=== PATIENT | male | born 1965 | race Hispanic/Latino ===

== ENCOUNTER 2021-10-17 07:47 | Inpatient (IN) | payer SELFPAY ==
[2021-10-17] MEDS ORDERED: fentaNYL 100 MCG/2 ML INJ IV ONE (08:29)
[2021-10-17] MEDS ORDERED: ONDANSETRON 4 MG/2 ML INJ IV ONE (08:29)
[2021-10-17] MEDS ORDERED: PANTOPRAZOLE 40 MG INJ IV ONE (08:29)
[2021-10-17] MEDS ORDERED: SODIUM CHLORIDE 0.9% 1000 ML 1,000 ML IV ONE ×2 (08:29→11:28)
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
[2021-10-17 08:59] LABS: Basophils # (Auto) 0.1 K/mm3 (0.0-0.1); Basophils % (Auto) 0.7 % (0.0-1.8); Eosinophils # (Auto) 0.4 K/mm3 (0.0-0.4); Eosinophils % (Auto) 3.2 % (0.0-4.3); Hematocrit 30.7 % (35.5-45.6); Hemoglobin 10.7 gm/dl (11.8-15.2); Lymphocytes # (Auto) 2.6 K/mm3 (1.2-5.4); Lymphocytes % (Auto) 23.3 % (13.4-35.0); Mean Corpuscular HGB Conc 35 % (32-34); Mean Corpuscular Volume 89 fl (84-94); Monocytes # (Auto) 1.2 K/mm3 (0.0-0.8); Platelet Count 398 K/mm3 (140-440); Red Blood Count 3.45 M/mm3 (3.65-5.03); Red Cell Distribution Width 13.3 % (13.2-15.2)
[2021-10-17 09:20] LABS: Creatine Kinase MB < 1.0 ng/mL (0.0-4.0)
[2021-10-17 09:21] LABS: Alanine Aminotransferase 7 units/L (7-56); Albumin 3.9 g/dL (3.9-5); BUN/Creatinine Ratio 29; Blood Urea Nitrogen 47 mg/dL (9-20); Calcium 9.6 mg/dL (8.4-10.2); Hemolysis Index 0
--- NOTE | 2021-10-17 10:26 | Cat Scan Report ---
CT abdomen pelvis w con INDICATION / CLINICAL INFORMATION: Epigastric pain, nausea vomit. TECHNIQUE: Axial CT images were obtained through the abdomen and pelvis after 100 cc of Omnipaque [address] scans at this location are performed using CT dose reduction for ALARA by means of automated exposure control. COMPARISON: None available. FINDINGS: LOWER CHEST: No significant abnormality LIVER: No significant abnormality GALLBLADDER/BILIARY TREE: No significant abnormality PANCREAS: Distal pancreas is absent. Proximal pancreas appears unremarkable. SPLEEN: No significant abnormality ADRENALS: No significant abnormality RIGHT KIDNEY / URETER: There is compensatory hypertrophy of the right kidney without acute abnormalit y. LEFT KIDNEY / URETER: Marked left renal atrophy without acute abnormality. URINARY BLADDER: No significant abnormality REPRODUCTIVE ORGANS: No significant abnormality STOMACH / BOWEL: Mural thickening and inflammatory stranding of the gastroduodenal junction with ulce ration and focal fluid and gas collection measuring 2.9 x 2.2 cm (series 2 image 55). Small areas of extra luminal gas are present, though there is no sandhya pneumoperitoneum within the remainder of the abdomen or pelvis. No evidence of obstruction. Remaining small bowel and colon are otherwise unremark able. Small bowel is normal in caliber. The colon is unremarkable. The appendix is normal in caliber. LYMPH NODES: No significant adenopathy. VASCULATURE: No significant abnormality. OTHER: No free air, free fluid, or focal fluid collection is identified. SKELETAL SYSTEM: No acute osseous findings. Chronic pars defects at L5 with minimal anterolisthesis a nd severe disc space height loss at L5-S1. IMPRESSION: 1. Findings consistent with peptic ulcer disease at the gastroduodenal junction with 2.9 cm focal flu id and gas collection, compatible with contained perforation. Small areas of extraluminal gas are pre sent without sandhya pneumoperitoneum within the remainder of the abdomen or pelvis. 2. No other acute abnormality. 3. Marked left renal atrophy. Other chronic and incidental findings as above. Signer Name: Cortes Maynard MD Signed: 10/17/2021 10:22 AM Workstation Name: [id number]
[2021-10-17 10:46] LABS: Bilirubin,Urine NEG (Negative); Blood,Urine SM (Negative); Color,Urine Straw (Yellow); Mucus,Urine FEW /HPF; Protein,Urine <15 mg/dL mg/dL (Negative); Urobilinogen,Urine < 2.0 mg/dL (<2.0)
[2021-10-17] MEDS ORDERED: PIPERACIL/TAZOBACTA 4.5/NS 100 4.5 GM/100 ML VIAL IV ONE (11:26)
--- NOTE | 2021-10-17 11:35 | Electrocardiograph Report ---
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
[2021-10-17] MEDS ORDERED: HYDROmorphone 1 MG/1 ML INJ IV ONE (12:04)
[2021-10-17] MEDS ORDERED: ONDANSETRON 4 MG/2 ML INJ ONE ×2 (12:05→15:59)
[2021-10-17] MEDS ORDERED: ACETAMINOPHEN 325 MG TAB PO PRN (12:26)
[2021-10-17] MEDS ORDERED: ALBUTEROL 2.5 MG/3 ML NEBU IH PRN (12:26)
--- NOTE | 2021-10-17 12:29 | History and Physical Report ---
History of Present Illness Chief complaint: My stomach hurts and I feel weak History of present illness: 56 YO Male with Obesity, DM, Metabolic Syndrome presents ED for evaluation. Patient reports "my stomach hurts". Patient states that he has experienced abdominal pain over the past 10 days with persistent symptoms over the same timeframe. Patient states that his symptoms were initially intermittent but have become more constant over the last 1 day. Patient states his pain is epigastric in nature, worsened with meals. Patient acknowledges nausea, and multiple episodes of vomiting. Patient knowledges diminished oral intake resulting in generalized weakness. EMS was notified and upon arrival the patient was found to be in distress and subsequently transported to [facility] for further care and evaluation of the aforementioned symptoms. The patient was seen and evaluated in the emergency department. All lab and imaging studies reviewed. Patient was CT scan of the abdomen and pelvis and was found to have peptic ulcer disease complicated by bowel perforation, systemic inflammatory response syndrome, acute kidney injury, volume depletion, and acute generalized peritonitis. Surgical team consulted in ED. Patient taken urgently to operating room for surgical intervention. Patient denies fever, chills, chest pain, palpitation, cough, skin rash, recent ill contacts, ingestion of food/water from new or different sources, or known exposure to COVID-19. No prior admission for review. No medication listed at time of admission for reconciliation. Advanced care planning conducted in ED. Patient admitted to IMCU due to increased risk of worsening symptoms. Past History Past Medical History: diabetes, GERD, other (See HPI) Past Surgical History: bowel surgery Social history: . denies: smoking, alcohol abuse, prescription drug abuse Family history: diabetes, hypertension Medications and Allergies Allergies Allergy/AdvReac Type Severity Reaction Status Date / Time ibuprofen AdvReac Bleeding Verified 10/17/21 07:53 Review of Systems Constitutional: no weight loss, no weight gain, no fever, no chills Ears, nose, mouth and throat: no ear pain, no ear discharge, no tinnitis, no nasal congestion Cardiovascular: no chest pain, no rapid/irregular heart beat, no edema Respiratory: no cough, no cough with sputum, no hemoptysis, no shortness of breath Gastrointestinal: abdominal pain, nausea, vomiting, indigestion Genitourinary Male: no hematuria, no flank pain, no urinary frequency, no urinary hesitancy Musculoskeletal: no neck stiffness, no neck pain, no shooting leg pain, no leg numbness/tingling Integumentary: no rash, no pruritis, no redness, no sores, no jaundice Neurological: no head injury, no transient paralysis, no weakness, no numbness, no syncope, no tremors Psychiatric: no anxiety, no memory loss, no insomnia, no hypersomnia, no change in appetite, no change in libido, no disorientation, no hallucinations Endocrine: no cold intolerance, no heat intolerance, no polydipsia, no polyuria, no nocturia Hematologic/Lymphatic: no easy bruising, no easy bleeding Allergic/Immunologic: no urticaria, no allergic rhinitis, no wheezing Exam - Constitutional Vitals: Temp Pulse Resp BP Pulse Ox 98.7 F 100 H 15 140/84 98 10/17/21 07:52 10/17/21 11:31 10/17/21 11:31 10/17/21 11:31 10/17/21 11:31 General appearance: Present: mild distress, obese - EENT Eyes: Present: PERRL ENT: hearing intact, clear oral mucosa - Neck Neck: Present: supple, normal ROM - Respiratory Respiratory effort: normal Respiratory: bilateral: CTA - Cardiovascular Heart Sounds: Present: S1 & S2. Absent: rub, click - Extremities Extremities: pulses symmetrical, No edema Peripheral Pulses: within normal limits - Abdominal General gastrointestinal: Present: soft, tender, non-distended, normal bowel sounds Localized gastrointestinal: tender: diffuse, guarding: diffuse, rebound: diffuse Male genitourinary: Present: normal - Integumentary Integumentary: Present: clear, warm, dry - Musculoskeletal Musculoskeletal: gait normal, strength equal bilaterally - Psychiatric Psychiatric: appropriate mood/affect, intact judgment & insight - Neurologic Neurologic: CNII-XII intact, moves all extremities HEART Score - HEART Score Troponin: Troponin T < 0.010 ng/mL (0.00-0.029) 10/17/21 08:41 Results - Labs CBC & Chem 7: 10/17/21 08:41 10/17/21 08:41 Labs: Abnormal lab results 10/17/21 10/17/21 10/17/21 Range/Units 08:11 08:41 08:41 WBC 11.2 H (4.5-11.0) K/mm3 RBC 3.45 L (3.65-5.03) M/mm3 Hgb 10.7 L (11.8-15.2) gm/dl Hct 30.7 L (35.5-45.6) % MCHC 35 H (32-34) % [place] % (Auto) 11.0 H (0.0-7.3) % [place] # (Auto) 1.2 H (0.0-0.8) K/mm3 VBG pH (7.320-7.420) Sodium 126 L (137-145) mmol/L Chloride 85.0 L (98-107) mmol/L Carbon Dioxide 19 L (22-30) mmol/L BUN 47 H (9-20) mg/dL Creatinine 1.6 H (0.8-1.3) mg/dL Glucose 417 H (75-100) mg/dL POC Glucose 400 H (70-105) mg/dL Total Creatine Kinase 20 L (55-170) units/L CK-MB (CK-2) Rel Index 5.0 H (0-4) 10/17/21 Range/Units 08:41 WBC (4.5-11.0) K/mm3 RBC (3.65-5.03) M/mm3 Hgb (11.8-15.2) gm/dl Hct (35.5-45.6) % MCHC (32-34) % [place] % (Auto) (0.0-7.3) % [place] # (Auto) (0.0-0.8) K/mm3 VBG pH 7.439 H (7.320-7.420) Sodium (137-145) mmol/L Chloride (98-107) mmol/L Carbon Dioxide (22-30) mmol/L BUN (9-20) mg/dL Creatinine (0.8-1.3) mg/dL Glucose (75-100) mg/dL POC Glucose (70-105) mg/dL Total Creatine Kinase (55-170) units/L CK-MB (CK-2) Rel Index (0-4) Assessment and Plan - Patient Problems (1) Acute generalized peritonitis Current Visit: Yes Status: Acute Plan to address problem: Surgery team consulted in ED, CT scan abdomen pelvis, serial abdominal exam, empiric IV antibiotic therapy x1 dose, pain control, n.p.o., continue medical management. (2) SIRS (systemic inflammatory response syndrome) Current Visit: Yes Status: Acute Plan to address problem: Empiric IV antibiotic therapy x1 dose, continue medical management, CBC, CMP, chest x-ray, CT scan abdomen and pelvis (3) Acute kidney injury (EWA) with acute tubular necrosis (ATN) Current Visit: Yes Status: Acute Plan to address problem: BMP, IV fluid resuscitation therapy, repeat BMP in a.m. to monitor serum creati nine as well as GFR. Monitor fluid balance. (4) Volume depletion Current Visit: Yes Status: Acute (5) Metabolic acidosis Current Visit: Yes Status: Acute Plan to address problem: IV fluid resuscitation therapy, supportive care, repeat BMP in AM. (6) Hyponatremia Current Visit: Yes Status: Acute Plan to address problem: IV fluid resuscitation therapy, BMP, repeat BMP in a.m. (7) Diabetes mellitus Current Visit: Yes Status: Acute Plan to address problem: Sliding-scale insulin therapy, Accu-Chek, insulin protocol, hypoglycemia protocol, (8) Obesity hypoventilation syndrome Current Visit: Yes Status: Acute Plan to address problem: Balanced diet, increase physical activity discharge, outpatient pulmonary follow-up for sleep study. (9) Perforated ulcer Current Visit: Yes Status: Acute Plan to address problem: CT scan abdomen pelvis, surgery team consulted, patient is pending surgical intervention. Pain control, n.p.o., IV fluid resuscitation therapy. (10) DVT prophylaxis Current Visit: Yes Status: Acute Plan to address problem: SCDs to bilateral lower extremities while in bed (11) Advance care planning Current Visit: Yes Status: Acute Plan to address problem: Disease education conducted, care plan discussed, diagnosis discussed, prognosis discussed, patient is full code. Patient and his understanding and agreement with care plan, +30 minutes.
[2021-10-17] MEDS ORDERED: LORazepam 2 MG/ML VIAL IV ONE (13:14)
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
[2021-10-17] MEDS ORDERED: LIDOCAINE MPF (2%) 20 MG/1 ML VIAL 5 ML ONE (13:26)
[2021-10-17] MEDS ORDERED: propofoL 200 MG/20 ML VIAL IV ONE (13:27)
[2021-10-17] MEDS ORDERED: MIDAZOLAM 2 MG/2 ML INJ ONE (13:27)
[2021-10-17] MEDS ORDERED: BUPIVACAINE/PF (0.5%) 5 MG/1 ML 30 ML VIAL INFILTRATI ONE ×2 (13:43→14:50)
[2021-10-17] MEDS ORDERED: LIDOCAINE 2%/EPINEPHRINE 1:200,000 VIAL (20 ML) INFILTRATI ONE (13:43)
[2021-10-17] MEDS ORDERED: ROCURONIUM 50 MG/5 ML INJ IV ONE ×2 (13:51→15:19)
[2021-10-17] MEDS ORDERED: fentaNYL 100 MCG/2 ML INJ ONE ×2 (13:52→14:42)
--- NOTE | 2021-10-17 14:04 | Anesthesia Day of Surgery ---
Anesthesia Day of Surgery - Day of Surgery Patient Examined: Yes Patient H&P Reviewed: Yes Patient is NPO: Yes
--- NOTE | 2021-10-17 14:05 | Anesthesia Consultation ---
Anesthesia Consult and Med Hx Date of service: 10/17/21 - Airway Anesthetic Teeth Evaluation: Good ROM Head & Neck: Adequate Mental/Hyoid Distance: Adequate Mallampati Class: Class II Intubation Access Assessment: Good - Pulmonary Exam CTA: Yes - Cardiac Exam Cardiac Exam: RRR - Pre-Operative Health Status ASA Pre-Surgery Classification: ASA2 Proposed Anesthetic Plan: General - Pulmonary Hx Smoking: No - Cardiovascular System Hx Hypertension: Yes - Gastrointestinal Hx Ulcer: Yes Hx Gastroesophageal Reflux Disease: Yes - Other Systems Hx Obesity: Yes
[2021-10-17] MEDS ORDERED: LIDOCAINE 1%/EPINEPHRINE 1:100,000 VIAL (20 ML) INFILTRATI ONE (14:51)
[2021-10-17] MEDS ORDERED: SODIUM CHLORIDE 0.9% IRR 1,500 ML BOTTLE IR ONE (14:52)
[2021-10-17] MEDS ORDERED: WATER FOR IRRIG STERILE 250 ML BOTTLE IR ONE (15:17)
[2021-10-17] MEDS ORDERED: WATER FOR IRRIG STERILE 1,000 ML BOTTLE ONE (15:17)
[2021-10-17] MEDS ORDERED: KETAMINE/STERILE WATER 50 MG/ML SYRINGE ONE (15:18)
[2021-10-17] MEDS ORDERED: ePHEDrine SULFATE 50 MG/1 ML INJ ONE (15:24)
[2021-10-17] MEDS ORDERED: SODIUM CHLORIDE 0.9% IRRIG SOLN 2000 ML IR ONE (15:39)
[2021-10-17] MEDS ORDERED: PHENYLEPHRINE/NS 1,000 MCG/10 ML SYRINGE (OR USE) IV ONE (16:02)
[2021-10-17] MEDS ORDERED: NEOSTIGMINE 10MG/10 ML INJ MDV ONE (16:02)
[2021-10-17] MEDS ORDERED: GLYCOPYRROLATE 0.4 MG/2 ML INJ ONE (16:02)
[2021-10-17] MEDS ORDERED: HYDROmorphone 1 MG/1 ML INJ ONE (16:19)
[2021-10-17] MEDS ORDERED: INSULIN LISPRO 100 UNIT/ML SUB-Q ONE ×2 (16:59→17:00)
--- NOTE | 2021-10-17 17:12 | Post Anesthesia Evaluation ---
- Post Anesthesia Evaluation Patient Participated: Yes Airway Patent: Yes Stable Respiratory Function: Yes Nausea/Vomiting: No Temp > 96.8F: Yes Pain Manageable: Yes Adequeate Hydration: Yes Anesthesia Complications: No Block Receding Appropriately: Not Applicable Patient on Ventilator: No
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
[2021-10-17] MEDS: SODIUM CHLORIDE 0.9% 1000 ML 1,000 ML IV SCH (18:00)
[2021-10-17] MEDS: MORPHINE 2 MG/1 ML INJ IV PRN (18:00)
[2021-10-17] MEDS ORDERED: DEXTROSE 50% IN WATER (25GM) 50 ML SYRINGE IV PRN (18:41)
[2021-10-17] MEDS ORDERED: PROMETHAZINE 25 MG TAB PO PRN (18:42)
[2021-10-17] MEDS ORDERED: ZOLPIDEM 5 MG TAB PO PRN (18:42)
[2021-10-17] MEDS ORDERED: ALPRAZolam 1 MG TAB PO PRN (19:31)
[2021-10-17] MEDS: LORazepam 2 MG/ML VIAL IV PRN (19:45)
[2021-10-17] MEDS: HYDROmorphone 1 MG/1 ML INJ IV PRN (19:46)
[2021-10-17] MEDS ORDERED: NON-FORMULARY EACH (Alprazolam [Xanax Tab] 2 MG Tablet) PO SCH (22:00)
[2021-10-17] MEDS ORDERED: PANTOPRAZOLE 40 MG TAB PO SCH (22:00)
[2021-10-17] MEDS: ALPRAZolam 1 MG TAB PO SCH (22:09)
[2021-10-17] MEDS: GABAPENTIN 400 MG CAP PO SCH (22:09)
[2021-10-17] MEDS: QUEtiapine 100 MG TAB PO SCH (22:09)
[2021-10-17] MEDS: ONDANSETRON 4 MG/2 ML INJ IV PRN (22:25)
[2021-10-17] MEDS: PANTOPRAZOLE 80 MG in SODIUM CHLORIDE 0.9% 100 ML IV SCH (22:26)
[2021-10-17] MEDS: INSULIN LISPRO 100 UNIT/ML SUB-Q SCH (23:58)
[2021-10-18] MEDS: MORPHINE 2 MG/1 ML INJ IV PRN ×3 (00:01→22:51)
[2021-10-18] MEDS: PIPERACIL/TAZOBACTA 4.5/NS 100 4.5 GM/100 ML VIAL IV SCH ×5 (00:55→23:00)
[2021-10-18] MEDS: LORazepam 2 MG/ML VIAL IV PRN ×4 (01:10→22:51)
[2021-10-18] MEDS: INSULIN LISPRO 100 UNIT/ML SUB-Q SCH ×3 (06:16→17:51)
[2021-10-18] MEDS: GABAPENTIN 400 MG CAP PO SCH ×2 (06:17→13:35)
[2021-10-18] MEDS: HYDROmorphone 1 MG/1 ML INJ IV PRN ×4 (07:10→21:05)
[2021-10-18] MEDS: SODIUM CHLORIDE 0.9% 1000 ML 1,000 ML IV SCH ×2 (07:11→21:12)
[2021-10-18 08:50] LABS: Hematocrit 28.5 % (35.5-45.6); Hemoglobin 9.9 gm/dl (11.8-15.2); Mean Corpuscular HGB Conc 35 % (32-34); Mean Corpuscular Volume 89 fl (84-94); Platelet Count 396 K/mm3 (140-440); Red Cell Distribution Width 13.1 % (13.2-15.2)
[2021-10-18] MEDS: PANTOPRAZOLE 80 MG in SODIUM CHLORIDE 0.9% 100 ML IV SCH ×2 (09:07→21:11)
[2021-10-18 09:09] LABS: Calcium 8.4 mg/dL (8.4-10.2)
[2021-10-18] MEDS: QUEtiapine 100 MG TAB PO SCH (09:54)
[2021-10-18] MEDS: ALPRAZolam 1 MG TAB PO SCH (09:55)
[2021-10-18] MEDS ORDERED: HCTZ 6.25 MG PO SCH (10:00)
[2021-10-18] MEDS ORDERED: TAMSULOSIN 0.4 MG CAP PO SCH (10:00)
[2021-10-18] MEDS ORDERED: CITALOPRAM 20 MG TAB PO SCH (10:00)
[2021-10-18] MEDS ORDERED: LISINOPRIL 10 MG TAB PO SCH (10:00)
[2021-10-18] MEDS ORDERED: BISOPROLOL PO SCH (10:00)
--- NOTE | 2021-10-18 12:33 | Post Anesthesia Evaluation ---
- Post Anesthesia Evaluation Patient Participated: No (Patient sleeping - information obtained from RN) Airway Patent: Yes Stable Respiratory Function: Yes Nausea/Vomiting: No Temp > 96.8F: Yes Pain Manageable: Yes Adequeate Hydration: Yes Anesthesia Complications: No Block Receding Appropriately: Not Applicable Patient on Ventilator: No
--- NOTE | 2021-10-18 13:38 | Progress Note ---
Assessment and Plan Postop day #1 status post diagnostic laparoscopy with drain placement for contained perforated duodenal ulcer. Patient is afebrile with low-grade tachycardia. Patient WBCs have normalized. Continue NG tube to low intermittent suction, Protonix drip, and will check integrity of sealed perforation with upper GI on Saturday. Continue antibiotics and aggressive resuscitation. Spoke with critical care team and suggested contacting [facility] to see if there are any IV medications that may help his anxiety since at home he is on Xanax, Seroquel, and Celexa. Patient also takes several medications including a beta-evy for blood pressure. Subjective Date of service: 10/18/21 Narrative: No acute events overnight. Patient says his epigastric pain is slightly better than when he presented in the emergency room. His biggest complaint is wanting the NG tube out. He also says that he really wants ice chips. Objective Vital Signs - 12hr 10/18/21 10/18/21 10/18/21 02:00 03:00 03:16 Temperature Pulse Rate 136 H 98 H 102 H Pulse Rate [ From Monitor] Respiratory 12 14 15 Rate Blood Pressure 132/76 150/112 150/112 O2 Sat by Pulse 97 95 98 Oximetry 10/18/21 10/18/21 10/18/21 03:30 03:46 04:00 Temperature 97.9 F Pulse Rate 100 H 99 H 111 H Pulse Rate [ 110 H From Monitor] Respiratory 14 17 19 Rate Blood Pressure 150/112 150/112 150/112 O2 Sat by Pulse 97 96 98 Oximetry 10/18/21 10/18/21 10/18/21 04:30 05:00 05:30 Temperature Pulse Rate 100 H 117 H 102 H Pulse Rate [ From Monitor] Respiratory 15 13 14 Rate Blood Pressure 139/76 144/78 144/78 O2 Sat by Pulse 95 98 91 Oximetry 10/18/21 10/18/21 10/18/21 06:00 06:06 06:30 Temperature Pulse Rate 107 H 102 H Pulse Rate [ From Monitor] Respiratory 19 17 16 Rate Blood Pressure 152/80 152/80 O2 Sat by Pulse 97 95 Oximetry 10/18/21 10/18/21 10/18/21 07:00 07:30 07:55 Temperature Pulse Rate 105 H 113 H 110 H Pulse Rate [ From Monitor] Respiratory 10 L 11 L Rate Blood Pressure 152/77 152/77 O2 Sat by Pulse 95 99 Oximetry 10/18/21 10/18/21 10/18/21 07:56 07:57 08:00 Temperature 97.4 F L Pulse Rate 108 H Pulse Rate [ 108 H From Monitor] Respiratory 16 16 Rate Blood Pressure 134/71 O2 Sat by Pulse 95 95 Oximetry 10/18/21 10/18/21 10/18/21 08:30 09:00 09:30 Temperature Pulse Rate 107 H 108 H 104 H Pulse Rate [ From Monitor] Respiratory 11 L 14 15 Rate Blood Pressure 134/71 134/71 141/79 O2 Sat by Pulse 95 99 98 Oximetry 10/18/21 10/18/21 10/18/21 10:00 10:30 11:00 Temperature Pulse Rate 102 H 104 H 107 H Pulse Rate [ From Monitor] Respiratory 15 18 15 Rate Blood Pressure 155/74 155/74 134/25 O2 Sat by Pulse 90 97 98 Oximetry - General physical appearance well developed, no distress, moderate pain - Eyes PERRL - Respiratory normal expansion, normal respiratory effort - Abdomen soft, other (ISIDRA drain SS, tender to palpation epigastric area, soft, incisions c/d/i) - Psychiatric other (anxious) - Labs 10/18/21 08:27 10/18/21 08:27 Diabetes panel 10/18/21 Range/Units 08:27 Sodium 136 L D (137-145) mmol/L Potassium 4.3 (3.6-5.0) mmol/L Chloride 100.7 (98-107) mmol/L Carbon Dioxide 22 (22-30) mmol/L BUN 29 H (9-20) mg/dL Creatinine 1.5 H (0.8-1.3) mg/dL Glucose 231 H (75-100) mg/dL Calcium 8.4 (8.4-10.2) mg/dL Calcium panel 10/18/21 Range/Units 08:27 Calcium 8.4 (8.4-10.2) mg/dL Pituitary panel 10/18/21 Range/Units 08:27 Sodium 136 L D (137-145) mmol/L Potassium 4.3 (3.6-5.0) mmol/L Chloride 100.7 (98-107) mmol/L Carbon Dioxide 22 (22-30) mmol/L BUN 29 H (9-20) mg/dL Creatinine 1.5 H (0.8-1.3) mg/dL Glucose 231 H (75-100) mg/dL Calcium 8.4 (8.4-10.2) mg/dL Adrenal panel 10/18/21 Range/Units 08:27 Sodium 136 L D (137-145) mmol/L Potassium 4.3 (3.6-5.0) mmol/L Chloride 100.7 (98-107) mmol/L Carbon Dioxide 22 (22-30) mmol/L BUN 29 H (9-20) mg/dL Creatinine 1.5 H (0.8-1.3) mg/dL Glucose 231 H (75-100) mg/dL Calcium 8.4 (8.4-10.2) mg/dL
[2021-10-18] MEDS: FLUCONAZOLE/NS 100 MG/50 ML 100 MG/50 ML BAG IV SCH (14:14)
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
[2021-10-18] MEDS: ACETAMINOPHEN IV 1,000 MG/100 ML BOTTLE IV SCH ×2 (17:49→21:04)
[2021-10-18] MEDS: ONDANSETRON 4 MG/2 ML INJ IV PRN (17:53)
[2021-10-18] MEDS: HEPARIN 5,000 UNIT/1 ML VIAL SUB-Q SCH (21:05)
[2021-10-19] MEDS: INSULIN LISPRO 100 UNIT/ML SUB-Q SCH ×4 (01:05→18:10)
[2021-10-19] MEDS: HYDROmorphone 1 MG/1 ML INJ IV PRN ×4 (01:55→20:32)
[2021-10-19] MEDS: ACETAMINOPHEN IV 1,000 MG/100 ML BOTTLE IV SCH ×2 (03:56→10:50)
[2021-10-19] MEDS: LORazepam 2 MG/ML VIAL IV PRN (04:06)
[2021-10-19 05:14] LABS: Hematocrit 27.1 % (35.5-45.6); Hemoglobin 9.2 gm/dl (11.8-15.2); Mean Corpuscular HGB Conc 34 % (32-34); Mean Corpuscular Volume 91 fl (84-94); Platelet Count 436 K/mm3 (140-440); Red Blood Count 2.99 M/mm3 (3.65-5.03); Red Cell Distribution Width 13.6 % (13.2-15.2)
[2021-10-19 05:30] LABS: Calcium 7.7 mg/dL (8.4-10.2)
[2021-10-19] MEDS: PIPERACIL/TAZOBACTA 4.5/NS 100 4.5 GM/100 ML VIAL IV SCH ×4 (05:41→23:55)
[2021-10-19] MEDS ORDERED: SODIUM PHOSPHATE 30 MMOL in SODIUM CHLORIDE 0.9% 500 ML 500 ML IV ONE (08:30)
[2021-10-19] MEDS: HEPARIN 5,000 UNIT/1 ML VIAL SUB-Q SCH ×2 (09:24→21:59)
[2021-10-19] MEDS: PANTOPRAZOLE 80 MG in SODIUM CHLORIDE 0.9% 100 ML IV SCH ×2 (09:24→20:21)
[2021-10-19] MEDS ORDERED: HALOPERIDOL LACTATE 5 MG/1 ML INJ IM PRN (10:10)
[2021-10-19] MEDS: HALOPERIDOL LACTATE 5 MG/1 ML INJ IV PRN ×3 (10:50→21:59)
[2021-10-19] MEDS: FLUCONAZOLE/NS 100 MG/50 ML 100 MG/50 ML BAG IV SCH (14:59)
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
[2021-10-19] MEDS: ONDANSETRON 4 MG/2 ML INJ IV PRN (15:38)
[2021-10-19] MEDS ORDERED: ACETAMINOPHEN 325 MG TAB PO PRN (16:00)
--- NOTE | 2021-10-19 17:00 | Progress Note ---
Assessment and Plan Postop day #2 status post diagnostic laparoscopy with drain placement for contained perforated duodenal ulcer. Patient is afebrile with low-grade tachycardia. Patient WBCs have normalized. Patient to be strict n.p.o. Will check UGI tomorrow. If negative will start on clear liquids and advance as tolerated. Subjective Date of service: 10/19/21 Narrative: Patient pulled out his NG tube this morning. Patient still asking for juice. Patient says that his pain in his epigastric area is improved compared to admission but he still feels some discomfort in the area. He denies any nausea or vomiting. Objective Vital Signs - 12hr 10/19/21 10/19/21 10/19/21 05:01 05:31 06:01 Temperature Pulse Rate 101 H 104 H 118 H Pulse Rate [ From Monitor] Respiratory 12 14 18 Rate Blood Pressure 133/64 133/64 133/64 O2 Sat by Pulse 99 99 99 Oximetry 10/19/21 10/19/21 10/19/21 06:31 06:46 07:00 Temperature Pulse Rate 109 H 108 H Pulse Rate [ From Monitor] Respiratory 15 14 12 Rate Blood Pressure 146/74 132/68 O2 Sat by Pulse 99 100 Oximetry 10/19/21 10/19/21 10/19/21 07:31 08:00 08:31 Temperature 99.0 F Pulse Rate 102 H 107 H 101 H Pulse Rate [ 100 H From Monitor] Respiratory 13 20 15 Rate Blood Pressure 132/68 119/70 119/70 O2 Sat by Pulse 99 99 98 Oximetry 10/19/21 10/19/21 10/19/21 09:00 09:34 09:57 Temperature Pulse Rate 101 H Pulse Rate [ From Monitor] Respiratory 15 Rate Blood Pressure 122/69 122/69 O2 Sat by Pulse 98 95 Oximetry 10/19/21 10/19/21 10/19/21 10:01 10:31 10:50 Temperature Pulse Rate 106 H 106 H Pulse Rate [ From Monitor] Respiratory 15 Rate Blood Pressure 159/90 159/90 O2 Sat by Pulse 95 94 Oximetry 10/19/21 10/19/21 10/19/21 11:00 11:30 11:31 Temperature 97.5 F L Pulse Rate 111 H 106 H Pulse Rate [ From Monitor] Respiratory 15 22 Rate Blood Pressure 131/99 131/99 O2 Sat by Pulse 97 97 Oximetry 10/19/21 10/19/21 10/19/21 12:00 12:31 13:00 Temperature Pulse Rate 103 H 105 H 105 H Pulse Rate [ 104 H From Monitor] Respiratory 16 17 15 Rate Blood Pressure 155/87 155/87 164/83 O2 Sat by Pulse 93 93 93 Oximetry 10/19/21 10/19/21 10/19/21 13:31 14:00 14:31 Temperature Pulse Rate 106 H 104 H 101 H Pulse Rate [ From Monitor] Respiratory 20 17 17 Rate Blood Pressure 164/83 159/86 159/86 O2 Sat by Pulse 93 96 96 Oximetry 10/19/21 15:00 Temperature 99.0 F Pulse Rate 116 H Pulse Rate [ From Monitor] Respiratory 13 Rate Blood Pressure 175/85 O2 Sat by Pulse 97 Oximetry - General physical appearance well developed, no distress, no pain - ENT no hearing loss - Respiratory normal expansion, normal respiratory effort - Abdomen soft, not distended, not rebound, not guarding, other (Tender to deep palpation epigastric area, ISIDRA drain small amount of serosanguineous fluid) - Labs 10/19/21 04:31 10/19/21 04:31 Diabetes panel 10/19/21 Range/Units 04:31 Sodium 137 (137-145) mmol/L Potassium 3.9 (3.6-5.0) mmol/L Chloride 102.4 (98-107) mmol/L Carbon Dioxide 22 (22-30) mmol/L BUN 17 (9-20) mg/dL Creatinine 1.4 H (0.8-1.3) mg/dL Glucose 174 H (75-100) mg/dL Calcium 7.7 L (8.4-10.2) mg/dL Calcium panel 10/19/21 Range/Units 04:31 Calcium 7.7 L (8.4-10.2) mg/dL Phosphorus 1.70 L (2.5-4.5) mg/dL Pituitary panel 10/19/21 Range/Units 04:31 Sodium 137 (137-145) mmol/L Potassium 3.9 (3.6-5.0) mmol/L Chloride 102.4 (98-107) mmol/L Carbon Dioxide 22 (22-30) mmol/L BUN 17 (9-20) mg/dL Creatinine 1.4 H (0.8-1.3) mg/dL Glucose 174 H (75-100) mg/dL Calcium 7.7 L (8.4-10.2) mg/dL Adrenal panel 10/19/21 Range/Units 04:31 Sodium 137 (137-145) mmol/L Potassium 3.9 (3.6-5.0) mmol/L Chloride 102.4 (98-107) mmol/L Carbon Dioxide 22 (22-30) mmol/L BUN 17 (9-20) mg/dL Creatinine 1.4 H (0.8-1.3) mg/dL Glucose 174 H (75-100) mg/dL Calcium 7.7 L (8.4-10.2) mg/dL
[2021-10-19] MEDS: SODIUM CHLORIDE 0.9% 1000 ML 1,000 ML IV SCH (18:11)
[2021-10-19] MEDS: MORPHINE 2 MG/1 ML INJ IV PRN (21:58)
[2021-10-20] MEDS: HYDROmorphone 1 MG/1 ML INJ IV PRN ×7 (00:08→23:17)
[2021-10-20] MEDS: MORPHINE 2 MG/1 ML INJ IV PRN (02:59)
[2021-10-20] MEDS: HALOPERIDOL LACTATE 5 MG/1 ML INJ IV PRN ×2 (04:47→10:01)
[2021-10-20] MEDS: ONDANSETRON 4 MG/2 ML INJ IV PRN (04:47)
[2021-10-20 05:08] LABS: Basophils # (Auto) 0.1 K/mm3 (0.0-0.1); Basophils % (Auto) 0.8 % (0.0-1.8); Eosinophils # (Auto) 0.4 K/mm3 (0.0-0.4); Eosinophils % (Auto) 5.7 % (0.0-4.3); Hematocrit 25.5 % (35.5-45.6); Hemoglobin 8.7 gm/dl (11.8-15.2); Lymphocytes # (Auto) 2.2 K/mm3 (1.2-5.4); Lymphocytes % (Auto) 30.1 % (13.4-35.0); Mean Corpuscular HGB Conc 34 % (32-34); Mean Corpuscular Volume 90 fl (84-94); Monocytes # (Auto) 0.6 K/mm3 (0.0-0.8); Monocytes % (Auto) 8.7 % (0.0-7.3); Platelet Count 410 K/mm3 (140-440); Red Blood Count 2.82 M/mm3 (3.65-5.03); Red Cell Distribution Width 13.7 % (13.2-15.2)
[2021-10-20 05:21] LABS: Calcium 7.6 mg/dL (8.4-10.2)
[2021-10-20] MEDS: PIPERACIL/TAZOBACTA 4.5/NS 100 4.5 GM/100 ML VIAL IV SCH ×4 (05:46→23:17)
[2021-10-20] MEDS: INSULIN LISPRO 100 UNIT/ML SUB-Q SCH ×5 (06:06→23:30)
[2021-10-20] MEDS: PANTOPRAZOLE 80 MG in SODIUM CHLORIDE 0.9% 100 ML IV SCH (07:07)
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
[2021-10-20] MEDS: HEPARIN 5,000 UNIT/1 ML VIAL SUB-Q SCH ×2 (10:01→21:19)
--- NOTE | 2021-10-20 10:04 | Fluoroscopy Report ---
[place] gi w/o air w/kub INDICATION / CLINICAL INFORMATION: f/u contained perf duodenal ulcer. TECHNIQUE: Upper GI was performed with Gastrografin. COMPARISON: CT of the abdomen pelvis dated 10/17/2021 FINDINGS: Approximately 50 cc of Gastrografin was consumed. Contrast made it into the proximal jejunu m. There are no areas of extra luminal contrast to suggest leak/perforation. Along the third/fourth p ortion of the duodenum there is are several duodenal diverticulum. Patient was also briefly laid pron e on the table at which time there was contrast which appeared to enter into 2 separate ulcers at the gastroduodenal junction (image 14 of 16). No contrast was seen to spill into the peritoneum. Fluoroscopy Time: 2.7 minutes. Fluoroscopy Images: 16. IMPRESSION: 1. No fluoroscopic evidence of perforation or extra luminal contrast. There are 2 ulcers noted at the gastroduodenal junction which did not demonstrate spillage into the peritoneum. 2. Additional duodenal diverticulum are noted in the third/fourth portion. Signer Name: Juanjose Armando DO Signed: 10/20/2021 10:00 AM Workstation Name: [id number]
--- NOTE | 2021-10-20 11:17 | Consultation ---
History of Present Illness - Reason for Consult Consult date: 10/20/21 Reason for consult: anxiety - History of Present Psychiatric Illness The patient was seen today. He is a/o x 3. He says he came to the hospital for ulcers. The patient denies any psych history outside of anxiety and states he takes xanax from his primary doctor. He denies SI/HI or any past history of suicide attempts. He says "hell naw. Never." The patient denies hallucinations of any kind. He says he sleeps "terrible." The patient says he has a problem getting to sleep. He denies illicit drug use, or alcohol. The nurse states the patient has been pulling lines and getting out of bed. Psych History Diagnoses: Anxiety Suicide attempts or Self-harm behavior: Denies Prior psychiatric hospitalizations: Denies Substance Abuse history: Denies Previous psychiatric medications tried: Denies Outpatient treatment: None reported PAST MEDICAL HISTORY: None reported Family Psychiatric History: Ulcers SOCIAL HISTORY Marital Status: Living Arrangements: alone Employment Status: Unemployed Access to guns/weapons: None report Education: High school History of Abuse: Denies Legal History: None reported REVIEW OF SYSTEMS Constitutional: Negative for weight loss ENT: Negative for stridor Respiratory: Negative for cough or hemoptysis All other systems reviewed and are negative MENTAL STATUS EXAMINATION General Appearance and Behavior: Age appropriate, good hygiene, wearing appropriate clothes, calm and cooperative Cooperation: cooperative Psychomotor Behavior: Psychomotor normal Mood: okay Affect and affective range: Congruent Thought Process: Goal directed Thought Content: None Speech: Normal rate, volume and rhythm Suicidal Ideation: Denies Homicidal Ideation: Denies HI Hallucinations: Denies Delusions: None elicited Impulse Control: Limited Insight and Judgment: Limited insight and judgment Memory: Limited Attention: Limited Orientation: Alert, oriented Assessment and Plan (1) Generalized Anxiety Disorder TREATMENT PLAN Will hold po celexa, ativan, ambien and seroquel based on neuro recommendations Agree with Haldol prn Start Lorazepam 2mg IM q4h prn anxiety in addition to haldol Medical: Per primary Sitter: Per primary Disposition: Do not recommend acute psychiatric inpatient treatment Will follow for med management Case staffed with Dr. Crawford Medications and Allergies Allergies Allergy/AdvReac Type Severity Reaction Status Date / Time ibuprofen AdvReac Bleeding Verified 10/17/21 07:53 Home Medications Medication Instructions Recorded Confirmed Last Taken Type ALPRAZolam [Xanax TAB] 1 mg PO BID 10/17/21 10/17/21 Unknown History Bisoprolol/Hydrochlorothiazide 1 each PO QDAY 10/17/21 10/17/21 Unknown History [Bisoprolol-Hctz 5-6.25 mg Tab] Citalopram [celeXA] 40 mg PO QDAY 10/17/21 10/17/21 Unknown History Gabapentin [Neurontin] 400 mg PO Q8HR 10/17/21 10/17/21 Unknown History Insulin Aspart (Nf) [NovoLOG 0 units SQ AC 10/17/21 10/17/21 Unknown History Flexpen] Insulin Detemir [Levemir Flextouch] 0 unit SQ QAM&QHS 10/17/21 10/17/21 Unknown History Pantoprazole [Protonix] 40 mg PO BID 10/17/21 10/17/21 Unknown History Pioglitazone HCl [Actos] 30 mg PO QHS 10/17/21 10/17/21 Unknown History Promethazine [Phenergan] 25 mg PO Q6HR PRN 10/17/21 10/17/21 Unknown History QUEtiapine [SEROquel] 100 mg PO BID 10/17/21 10/17/21 Unknown History Sucralfate [Carafate] 1 gm PO BID 10/17/21 10/17/21 Unknown History Tamsulosin [Flomax] 0.4 mg PO QDAY 10/17/21 10/17/21 Unknown History Zolpidem [Ambien] 10 mg PO QHS PRN 10/17/21 10/17/21 Unknown History glipiZIDE [Glucotrol] 10 mg PO BID 10/17/21 10/17/21 Unknown History lisinopriL [Zestril TAB] 10 mg PO QDAY 10/17/21 10/17/21 Unknown History Active Meds: Active Medications Acetaminophen (Acetaminophen 325 Mg Tab) 650 mg PO Q4H PRN PRN Reason: Pain, Mild (1-3) Albuterol (Albuterol 2.5 Mg/3 Ml Nebu) 2.5 mg IH Q4HRT PRN PRN Reason: Shortness Of Breath Dextrose (Dextrose 50% In Water (25gm) 50 Ml Syringe) 50 ml IV Q30MIN PRN; Pr otocol PRN Reason: Hypoglycemia Haloperidol Lactate (Haloperidol Lactate 5 Mg/1 Ml Inj) 2 mg IV Q4H PRN PRN Reason: Agitation Last Admin: 10/20/21 10:01 Dose: 2 mg Heparin Sodium (Porcine) (Heparin 5,000 Unit/1 Ml Vial) 5,000 unit SUB-Q Q12HR BENITEZ Last Admin: 10/20/21 10:01 Dose: 5,000 unit Hydromorphone HCl (Hydromorphone 1 Mg/1 Ml Inj) 0.5 mg IV Q3H PRN PRN Reason: Pain , Severe (7-10) Last Admin: 10/20/21 10:01 Dose: 0.5 mg Sodium Chloride (Nacl 0.9% 1000 Ml) 1,000 mls @ 75 mls/hr IV DIRECT BENITEZ Last Admin: 10/19/21 18:11 Dose: 75 mls/hr Pantoprazole Sodium 80 mg/ (Sodium Chloride) 100 mls @ 10 mls/hr IV DIRECT BENITEZ Last Admin: 10/20/21 07:07 Dose: 8 mg/hr, 10 mls/hr Piperacillin Sod/Tazobactam Sod (Zosyn/Ns 4.5gm/100ml) 4.5 gm in 100 mls @ 200 mls/hr IV Q6H BENITEZ; Protocol Last Admin: 10/20/21 05:46 Dose: 200 mls/hr Fluconazole (Diflucan/Ns 100 Mg/50 Ml) 100 mg in 50 mls @ 50 mls/hr IV Q24H BENITEZ; Protocol Last Admin: 10/19/21 14:59 Dose: 50 mls/hr Insulin Human Lispro (Insulin Lispro 100 Unit/Ml) 0 unit SUB-Q Q6HR BENITEZ; Protocol Last Admin: 10/20/21 06:06 Dose: Not Given Morphine Sulfate (Morphine 2 Mg/1 Ml Inj) 2 mg IV Q6H PRN PRN Reason: Pain, Moderate (4-6) Last Admin: 10/20/21 02:59 Dose: 2 mg Ondansetron HCl (Ondansetron 4 Mg/2 Ml Inj) 4 mg IV Q8H PRN PRN Reason: Nausea And Vomiting Last Admin: 10/20/21 04:47 Dose: 4 mg Sodium Chloride (Sodium Chloride 0.9% 10 Ml Flush Syringe) 10 ml IV BID BENITEZ Last Admin: 10/20/21 10:02 Dose: 10 ml Sodium Chloride (Sodium Chloride 0.9% 10 Ml Flush Syringe) 10 ml IV PRN PRN PRN Reason: LINE FLUSH Mental Status Exam - Vital signs Last Vital Signs Temp 98.6 F 10/20/21 07:26 Pulse 102 H 10/20/21 06:00 Resp 12 10/20/21 06:00 BP 145/72 10/20/21 06:00 Pulse Ox 97 10/20/21 06:00 Results Result Diagrams: 10/20/21 04:39 10/20/21 04:39 Abnormal lab results 10/19/21 10/19/21 10/20/21 Range/Units 11:40 17:35 04:39 RBC 2.82 L (3.65-5.03) M/mm3 Hgb 8.7 L (11.8-15.2) gm/dl Hct 25.5 L (35.5-45.6) % [place] % (Auto) 8.7 H (0.0-7.3) % Eos % (Auto) 5.7 H (0.0-4.3) % Carbon Dioxide (22-30) mmol/L Glucose (75-100) mg/dL POC Glucose 146 H 153 H (70-105) mg/dL Calcium (8.4-10.2) mg/dL Phosphorus (2.5-4.5) mg/dL 10/20/21 Range/Units 04:39 RBC (3.65-5.03) M/mm3 Hgb (11.8-15.2) gm/dl Hct (35.5-45.6) % [place] % (Auto) (0.0-7.3) % Eos % (Auto) (0.0-4.3) % Carbon Dioxide 21 L (22-30) mmol/L Glucose 153 H (75-100) mg/dL POC Glucose (70-105) mg/dL Calcium 7.6 L (8.4-10.2) mg/dL Phosphorus 2.10 L D (2.5-4.5) mg/dL All other labs normal.
[2021-10-20] MEDS: FLUCONAZOLE/NS 100 MG/50 ML 100 MG/50 ML BAG IV SCH (13:30)
--- NOTE | 2021-10-20 16:06 | Progress Note ---
Assessment and Plan Postop day #3 status post diagnostic laparoscopy with drain placement for contained perforated duodenal ulcer. Patient is afebrile with improving tachycardia. Will start on clear liquids and carafate since UGI negative. Can advance to full liquids tomorrow. Resume home oral medications. Maintain tight glucose control. Hopefully can discharge in the next 48 hours. Subjective Date of service: 10/20/21 Narrative: No acute events overnight. Pt had an UGI this morning that was negative for active perforation. Pt has no new complaints and is feeling a bit better comp ared to yesterday. Objective Vital Signs - 12hr 10/20/21 10/20/21 10/20/21 04:30 05:00 05:30 Temperature Pulse Rate 95 H 134 H 102 H Respiratory 12 22 10 L Rate Blood Pressure 154/86 154/86 154/86 O2 Sat by Pulse 97 97 97 Oximetry 10/20/21 10/20/21 10/20/21 05:45 06:00 06:30 Temperature Pulse Rate 102 H 99 H Respiratory 13 12 15 Rate Blood Pressure 145/72 145/72 O2 Sat by Pulse 97 96 Oximetry 10/20/21 10/20/21 10/20/21 07:00 07:26 07:30 Temperature 98.6 F Pulse Rate 95 H 98 H Respiratory 11 L 13 Rate Blood Pressure 145/68 145/68 O2 Sat by Pulse 98 98 Oximetry 10/20/21 10/20/21 10/20/21 08:00 08:30 09:32 Temperature Pulse Rate 74 104 H 117 H Respiratory 14 14 15 Rate Blood Pressure 131/71 131/71 131/71 O2 Sat by Pulse 99 98 98 Oximetry 10/20/21 10/20/21 10/20/21 10:00 10:30 11:00 Temperature Pulse Rate 108 H 108 H 106 H Respiratory 13 15 16 Rate Blood Pressure 142/84 142/84 126/73 O2 Sat by Pulse 97 97 98 Oximetry 10/20/21 10/20/21 10/20/21 11:30 11:49 12:00 Temperature 98.1 F 97.8 F Pulse Rate 139 H 75 Respiratory 16 21 Rate Blood Pressure 126/73 167/113 O2 Sat by Pulse 98 100 Oximetry 10/20/21 10/20/21 10/20/21 12:30 13:00 13:30 Temperature Pulse Rate 114 H 110 H 107 H Respiratory 14 13 13 Rate Blood Pressure 167/113 166/85 166/85 O2 Sat by Pulse 99 99 97 Oximetry 10/20/21 10/20/21 10/20/21 14:00 14:30 16:00 Temperature 97.8 F Pulse Rate 103 H 97 H Respiratory 17 11 L Rate Blood Pressure 136/79 136/79 O2 Sat by Pulse 98 93 Oximetry - General physical appearance no distress, no pain - ENT no hearing loss - Respiratory normal expansion, normal respiratory effort - Abdomen soft, other (tender to palpation in the epigastric area, ISIDRA drain with small amount SS fluid) - Labs 10/20/21 04:39 10/20/21 04:39 Diabetes panel 10/20/21 Range/Units 04:39 Sodium 139 (137-145) mmol/L Potassium 4.1 (3.6-5.0) mmol/L Chloride 102.9 (98-107) mmol/L Carbon Dioxide 21 L (22-30) mmol/L BUN 11 (9-20) mg/dL Creatinine 1.3 (0.8-1.3) mg/dL Glucose 153 H (75-100) mg/dL Calcium 7.6 L (8.4-10.2) mg/dL Calcium panel 10/20/21 Range/Units 04:39 Calcium 7.6 L (8.4-10.2) mg/dL Phosphorus 2.10 L D (2.5-4.5) mg/dL Pituitary panel 10/20/21 Range/Units 04:39 Sodium 139 (137-145) mmol/L Potassium 4.1 (3.6-5.0) mmol/L Chloride 102.9 (98-107) mmol/L Carbon Dioxide 21 L (22-30) mmol/L BUN 11 (9-20) mg/dL Creatinine 1.3 (0.8-1.3) mg/dL Glucose 153 H (75-100) mg/dL Calcium 7.6 L (8.4-10.2) mg/dL Adrenal panel 10/20/21 Range/Units 04:39 Sodium 139 (137-145) mmol/L Potassium 4.1 (3.6-5.0) mmol/L Chloride 102.9 (98-107) mmol/L Carbon Dioxide 21 L (22-30) mmol/L BUN 11 (9-20) mg/dL Creatinine 1.3 (0.8-1.3) mg/dL Glucose 153 H (75-100) mg/dL Calcium 7.6 L (8.4-10.2) mg/dL
[2021-10-20] MEDS: SUCRALFATE 1 GM/10 ML ORAL LIQD PO SCH ×2 (18:42→23:17)
[2021-10-20] MEDS: LORazepam 2 MG/ML VIAL IM PRN ×2 (19:21→23:31)
[2021-10-20] MEDS: PANTOPRAZOLE 40 MG INJ IV SCH (21:19)
[2021-10-21] MEDS: HYDROmorphone 1 MG/1 ML INJ IV PRN ×6 (02:08→20:20)
[2021-10-21] MEDS: SODIUM CHLORIDE 0.9% 1000 ML 1,000 ML IV SCH (02:11)
[2021-10-21 04:39] LABS: Hematocrit 24.1 % (35.5-45.6); Hemoglobin 8.2 gm/dl (11.8-15.2); Mean Corpuscular HGB Conc 34 % (32-34); Mean Corpuscular Volume 90 fl (84-94); Platelet Count 429 K/mm3 (140-440); Red Blood Count 2.68 M/mm3 (3.65-5.03); Red Cell Distribution Width 13.6 % (13.2-15.2)
[2021-10-21] MEDS: SUCRALFATE 1 GM/10 ML ORAL LIQD PO SCH ×3 (05:15→17:32)
[2021-10-21] MEDS: PIPERACIL/TAZOBACTA 4.5/NS 100 4.5 GM/100 ML VIAL IV SCH (05:16)
[2021-10-21] MEDS: INSULIN LISPRO 100 UNIT/ML SUB-Q SCH ×3 (05:26→17:33)
[2021-10-21] MEDS: ONDANSETRON 4 MG/2 ML INJ IV PRN (08:24)
[2021-10-21] MEDS: oxyCODONE 5 MG TAB PO PRN ×3 (09:37→20:00)
[2021-10-21] MEDS: ALPRAZolam 1 MG TAB PO SCH ×2 (09:37→21:08)
[2021-10-21] MEDS: HEPARIN 5,000 UNIT/1 ML VIAL SUB-Q SCH ×2 (09:38→21:09)
[2021-10-21] MEDS: TAMSULOSIN 0.4 MG CAP PO SCH (09:38)
[2021-10-21] MEDS: BISOPROLOL PO SCH (09:38)
[2021-10-21] MEDS: HCTZ 6.25 MG PO SCH (09:38)
[2021-10-21] MEDS: QUEtiapine 100 MG TAB PO SCH ×2 (09:38→21:08)
[2021-10-21] MEDS: PANTOPRAZOLE 40 MG INJ IV SCH ×2 (09:39→21:09)
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
--- NOTE | 2021-10-21 12:23 | Progress Note ---
Assessment and Plan Postop day #4 status post diagnostic laparoscopy with drain placement for contained perforated duodenal ulcer. Patient is afebrile and stable. Will start on full liquids. If does well can advance to soft diet tomorrow. Would discharge patient on home medications to include every 6 hour Carafate, and resumption of PPI. Will remove drain prior to discharge. Subjective Date of service: 10/21/21 Narrative: No acute events overnight. Patient tolerating full liquid without difficulty. Patient says his epigastric pain is slightly improving. Objective Vital Signs - 12hr 10/21/21 10/21/21 10/21/21 01:00 02:00 03:01 Temperature Pulse Rate 113 H 94 H 98 H Pulse Rate [ From Monitor] Respiratory 14 13 17 Rate Blood Pressure 161/111 166/76 138/67 O2 Sat by Pulse 98 99 98 Oximetry 10/21/21 10/21/21 10/21/21 04:00 04:01 04:17 Temperature 98.4 F Pulse Rate 88 Pulse Rate [ From Monitor] Respiratory 15 Rate Blood Pressure 178/90 O2 Sat by Pulse 97 100 Oximetry 10/21/21 10/21/21 10/21/21 05:01 06:00 07:01 Temperature Pulse Rate 91 H 89 93 H Pulse Rate [ From Monitor] Respiratory 14 10 L 13 Rate Blood Pressure 168/73 177/83 155/75 O2 Sat by Pulse 98 99 100 Oximetry 10/21/21 10/21/21 10/21/21 07:35 07:47 07:48 Temperature 97.9 F Pulse Rate 95 H Pulse Rate [ 95 H From Monitor] Respiratory 21 Rate Blood Pressure O2 Sat by Pulse 99 Oximetry 10/21/21 10/21/21 10/21/21 08:00 09:00 09:38 Temperature Pulse Rate 100 H 94 H 95 H Pulse Rate [ From Monitor] Respiratory 17 12 Rate Blood Pressure 161/68 171/80 177/80 O2 Sat by Pulse 98 97 Oximetry 10/21/21 10/21/21 10/21/21 10:00 11:01 11:13 Temperature 97.4 F L Pulse Rate 99 H 95 H 118 H Pulse Rate [ 118 H From Monitor] Respiratory 16 11 L 19 Rate Blood Pressure 153/75 134/59 O2 Sat by Pulse 98 96 98 Oximetry 10/21/21 12:01 Temperature Pulse Rate 98 H Pulse Rate [ From Monitor] Respiratory 19 Rate Blood Pressure 161/108 O2 Sat by Pulse 98 Oximetry - General physical appearance well developed, no distress, no pain - Eyes PERRL - ENT no hearing loss - Respiratory normal expansion, normal respiratory effort - Abdomen soft, other (Mild tenderness to palpation epigastric area. ISIDRA drain with minimal serosanguineous drainage.) - Labs 10/21/21 04:15 10/20/21 04:39
[2021-10-21] MEDS ORDERED: GABAPENTIN 500 MG/10 ML ORAL LIQD PO SCH (14:00)
[2021-10-21] MEDS: FLUCONAZOLE/NS 100 MG/50 ML 100 MG/50 ML BAG IV SCH (14:14)
[2021-10-21] MEDS: PHOS-NAK POWDER PACKET PO SCH (14:15)
[2021-10-21] MEDS: LORazepam 2 MG/ML VIAL IM PRN (20:27)
[2021-10-21] MEDS ORDERED: ZOLPIDEM 5 MG TAB PO PRN (22:00)
[2021-10-22] MEDS: HYDROmorphone 1 MG/1 ML INJ IV PRN ×2 (01:24→07:02)
[2021-10-22] MEDS: ONDANSETRON 4 MG/2 ML INJ IV PRN (01:25)
[2021-10-22] MEDS: LORazepam 2 MG/ML VIAL IM PRN (01:28)
[2021-10-22] MEDS: oxyCODONE 5 MG TAB PO PRN ×3 (04:20→14:28)
[2021-10-22] MEDS: GABAPENTIN 400 MG CAP PO SCH ×2 (05:12→14:26)
[2021-10-22] MEDS: SUCRALFATE 1 GM/10 ML ORAL LIQD PO SCH ×3 (05:13→12:29)
[2021-10-22 05:29] LABS: Mean Corpuscular HGB Conc 33 % (32-34); Mean Corpuscular Volume 93 fl (84-94); Platelet Count 229 K/mm3 (140-440); Red Cell Distribution Width 13.8 % (13.2-15.2)
[2021-10-22 05:42] LABS: Red Blood Count 1.53 M/mm3 (3.65-5.03)
[2021-10-22 05:45] LABS: Hematocrit 14.3 % (35.5-45.6); Hemoglobin 4.7 gm/dl (11.8-15.2)
[2021-10-22] MEDS ORDERED: SODIUM CHLORIDE 0.9% 500 ML 500 ML IV ONE (05:52)
[2021-10-22 06:48] LABS: Basophils # (Auto) 0.1 K/mm3 (0.0-0.1); Basophils % (Auto) 0.9 % (0.0-1.8); Eosinophils # (Auto) 0.3 K/mm3 (0.0-0.4); Eosinophils % (Auto) 4.5 % (0.0-4.3); Hematocrit 26.1 % (35.5-45.6); Hemoglobin 8.8 gm/dl (11.8-15.2); Lymphocytes # (Auto) 1.7 K/mm3 (1.2-5.4); Lymphocytes % (Auto) 26.2 % (13.4-35.0); Mean Corpuscular HGB Conc 34 % (32-34); Mean Corpuscular Volume 90 fl (84-94); Monocytes # (Auto) 0.5 K/mm3 (0.0-0.8); Platelet Count 434 K/mm3 (140-440); Red Cell Distribution Width 13.6 % (13.2-15.2)
[2021-10-22] MEDS: PHOS-NAK POWDER PACKET PO SCH (07:23)
[2021-10-22 07:48] LABS: BUN/Creatinine Ratio 4; Blood Urea Nitrogen 4 mg/dL (9-20); Calcium 7.8 mg/dL (8.4-10.2); Hemolysis Index 4
[2021-10-22] MEDS ORDERED: SODIUM PHOSPHATE 45 MMOL in SODIUM CHLORIDE 0.9% 500 ML 500 ML IV ONE (09:00)
[2021-10-22] MEDS: PANTOPRAZOLE 40 MG INJ IV SCH (09:06)
[2021-10-22] MEDS: ALPRAZolam 1 MG TAB PO SCH (09:06)
[2021-10-22] MEDS: HEPARIN 5,000 UNIT/1 ML VIAL SUB-Q SCH (09:06)
[2021-10-22] MEDS: QUEtiapine 100 MG TAB PO SCH (09:06)
[2021-10-22] MEDS: TAMSULOSIN 0.4 MG CAP PO SCH (09:07)
[2021-10-22] MEDS: INSULIN LISPRO 100 UNIT/ML SUB-Q SCH ×2 (09:07→12:29)
[2021-10-22] MEDS: HCTZ 6.25 MG PO SCH (09:08)
[2021-10-22] MEDS: BISOPROLOL PO SCH (09:08)
[2021-10-22] MEDS ORDERED: INSULIN GLARGINE 100 UNITS/ML SUB-Q SCH (10:00)
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
--- NOTE | 2021-10-22 12:46 | Progress Note ---
Assessment and Plan Postop day #5 status post diagnostic laparoscopy with drain placement for contained perforated duodenal ulcer. Patient is afebrile and stable. Will advance to soft diet. If patient tolerates can be discharged today. Patient to follow-up in the office with me in 2 weeks. Recommend patient continue on every 6 hours Carafate along with resumption of his PPI. Also will stay on soft foods until seen in the office. Drain was removed. Subjective Date of service: 10/22/21 Narrative: No acute events overnight. Patient tolerating full liquids without any increase in pain or change in vital signs. Patient's ISIDRA drain continues with minimal serosanguineous output. Patient has no other complaints and says that he is feeling a bit better compared to yesterday. Objective Vital Signs - 12hr 10/22/21 10/22/21 10/22/21 01:00 02:00 03:00 Temperature Pulse Rate 93 H 87 89 Pulse Rate [ From Monitor] Respiratory 16 14 15 Rate Respiratory Rate [Upper Medial Abdomen] Blood Pressure 123/73 131/78 O2 Sat by Pulse 98 97 98 Oximetry 10/22/21 10/22/21 10/22/21 04:00 04:20 04:53 Temperature Pulse Rate 89 Pulse Rate [ From Monitor] Respiratory 14 14 18 Rate Respiratory 14 Rate [Upper Medial Abdomen] Blood Pressure 116/51 O2 Sat by Pulse 98 Oximetry 10/22/21 10/22/21 10/22/21 05:00 06:00 07:00 Temperature Pulse Rate 102 H 89 93 H Pulse Rate [ From Monitor] Respiratory 17 15 16 Rate Respiratory Rate [Upper Medial Abdomen] Blood Pressure 116/51 136/70 136/70 O2 Sat by Pulse 99 98 98 Oximetry 10/22/21 10/22/21 10/22/21 07:02 08:00 09:00 Temperature 99.9 F H Pulse Rate 104 H 106 H Pulse Rate [ 100 H From Monitor] Respiratory 16 13 Rate Respiratory Rate [Upper Medial Abdomen] Blood Pressure 114/72 171/83 O2 Sat by Pulse 98 99 Oximetry 10/22/21 10/22/21 09:08 11:24 Temperature 98.9 F Pulse Rate 97 H Pulse Rate [ From Monitor] Respiratory Rate Respiratory Rate [Upper Medial Abdomen] Blood Pressure 171/83 O2 Sat by Pulse Oximetry - General physical appearance well developed, no distress, no pain - Eyes PERRL - ENT no hearing loss - Respiratory normal expansion, normal respiratory effort - Abdomen soft, other (Incisions clean dry and intact, ISIDRA drain with small amount of serosanguineous fluid, appropriate tender to palpation epigastric area.) - Labs 10/22/21 06:34 10/22/21 06:34 Diabetes panel 10/22/21 Range/Units 06:34 Sodium 138 (137-145) mmol/L Potassium 3.7 (3.6-5.0) mmol/L Chloride 103.4 (98-107) mmol/L Carbon Dioxide 21 L (22-30) mmol/L BUN 4 L (9-20) mg/dL Creatinine 1.1 (0.8-1.3) mg/dL Glucose 208 H (75-100) mg/dL Calcium 7.8 L (8.4-10.2) mg/dL Calcium panel 10/22/21 Range/Units 06:34 Calcium 7.8 L (8.4-10.2) mg/dL Phosphorus 1.30 L (2.5-4.5) mg/dL Pituitary panel 10/22/21 Range/Units 06:34 Sodium 138 (137-145) mmol/L Potassium 3.7 (3.6-5.0) mmol/L Chloride 103.4 (98-107) mmol/L Carbon Dioxide 21 L (22-30) mmol/L BUN 4 L (9-20) mg/dL Creatinine 1.1 (0.8-1.3) mg/dL Glucose 208 H (75-100) mg/dL Calcium 7.8 L (8.4-10.2) mg/dL Adrenal panel 10/22/21 Range/Units 06:34 Sodium 138 (137-145) mmol/L Potassium 3.7 (3.6-5.0) mmol/L Chloride 103.4 (98-107) mmol/L Carbon Dioxide 21 L (22-30) mmol/L BUN 4 L (9-20) mg/dL Creatinine 1.1 (0.8-1.3) mg/dL Glucose 208 H (75-100) mg/dL Calcium 7.8 L (8.4-10.2) mg/dL
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
[2021-10-22 16:09] VITALS: BP 126/66
[2021-10-23] MEDS ORDERED: INSULIN GLARGINE 100 UNITS/ML SUB-Q SCH (08:00)
== END 2021-10-22 17:04 | disposition home or self-care (01) | DRG 326 ==
LOC: ED 07:47 → IMCU 12:26
PROVIDERS: ADMIT Internal Medicine; ATTEND Internal Medicine
PROC: 0DJ04ZZ Inspection of Upper Intestinal Tract, Percutaneous Endoscopic Approach (ICD-10-PCS; principal; 2021-10-17)
PROC: 0DN Gastrointestinal System, Release (ICD-10-PCS; 2021-10-17)
PROC: 0DJ08ZZ Inspection of Upper Intestinal Tract, Via Natural or Artificial Opening Endoscopic (ICD-10-PCS; 2021-10-17)
DX: K27.5 Chronic or unspecified peptic ulcer, site unspecified, with perforation (principal); K65.9 Peritonitis, unspecified; N17.0 Acute kidney failure with tubular necrosis; J96.01 Acute respiratory failure with hypoxia; E66.2 Morbid (severe) obesity with alveolar hypoventilation; R65.10 Systemic inflammatory response syndrome (SIRS) of non-infectious origin without acute organ dysfunction; E87.1 Hypo-osmolality and hyponatremia; E87.2 Acidosis; K26.1 Acute duodenal ulcer with perforation; N40.0 Benign prostatic hyperplasia without lower urinary tract symptoms; F41.9 Anxiety disorder, unspecified; K21.9 Gastro-esophageal reflux disease without esophagitis; E11.9 Type 2 diabetes mellitus without complications; E86.9 Volume depletion, unspecified; Z68.37 Body mass index [BMI] 37.0-37.9, adult; Z83.3 Family history of diabetes mellitus; Z88.8 Allergy status to other drugs, medicaments and biological substances; Z82.49 Family history of ischemic heart disease and other diseases of the circulatory system
CPT/HCPCS: 36415; 74177; 74240; 80048; 80053; 81001; 82550; 82553; 82805; 82962; 83690; 83735; 84100; 84484; 85025; 85027; 93005; 94760; G0378; J1815; J3490; Q9967; C9113; J0131; J1170; J1450; J1630; J1644; J2060; J2250; J2270; J2370; J2405; J2543; J2704; J2710; J3010; J7030; J7040